=== PATIENT | male | born 1945 | race Caucasian/White ===

== ENCOUNTER → 2016-10-23 | Outpatient (CLI) | payer MEDICARE ==
[2014-03-14 10:50] VITALS: BP 174/77
[~2016-10-23] MED LIST: 5-HY50CA3 PO; ASCO60LO PO; ASPI81TA2 PO; B1/B1TAB2 PO; CALC300T5 PO; CHRO200C PO; CRAN200C PO; GARL1CAP3 PO; GINK60CA7 PO; GLUC100018 PO; KRIL500C PO; MELA3TAB PO; MELO-150 PO; MULT-208 PO; OMEG300C PO; OMEP40CA5 PO; PRAS1TAB2 PO; PSYL0.526 PO; SAW80CAP PO; TIZA4TAB PO
--- NOTE | 2016-10-23 14:47 | KCIC ---
Examination: CT chest without contrast. HISTORY History of right upper lobe nodular density on prior CT scan. COMPARISON 05/16/2016. TECHNIQUE Axial CT images of the chest were performed without contrast. Coronal and sagittal reformats were performed. Exposure: One or more of the following dose reduction technique were utilized for this examination: 1. Automated exposure control. 2.Adjustment of MA and /or KV according to patient size. 3. Use of iterative reconstruction technique. FINDINGS The visualized thyroid gland grossly appears unremarkable. The central airways are patent. The ascending aorta measures 3.1 centimeters in transverse dimension. Coronary artery calcifications identified. The heart size is normal. No radiologically significant mediastinal lymphadenopathy is identified. Nodular appearing bilateral apical pleural thickening grossly similar to prior exam. Mild right apical paraseptal emphysematous changes. Calcified granuloma identified in the left lower lobe of the lung. No evidence of pleural effusion or pneumothorax. The visualized non contrasted liver, spleen, adrenal grossly appears unremarkable. Partially visualized gallstones identified within the gallbladder. Moderate aortic atherosclerosis. Thoracic levoscoliosis. Moderate degenerative changes thoracic spine. IMPRESSION - Bilateral apical nodular thickening of the pleural grossly appears similar to prior exam. - Coronary artery calcifications. - Partially visualized gallstones identified the gallbladder. Electronically signed by: Farhad Garrett (Oct 23, 2016 14:45:51)
== END | disposition home or self-care (01) ==
LOC: KCIC CT 13:38
PROVIDERS: ATTEND Family Medicine
DX: R91.8 Other nonspecific abnormal finding of lung field (principal)
CPT/HCPCS: 71250